=== PATIENT | female | born 1985 | race Caucasian/White ===

== ENCOUNTER 2023-12-03 02:18 | Emergency (ER) | payer SELFPAY ==
[2023-12-03 02:23] VITALS: BP 135/78; PULSE 110; RESP 20; TEMP 36.7; O2SAT 99; BMI 45.2
--- NOTE | 2023-12-03 02:25 | ED_ITS ---
HPI - Anxiety General Time Seen by Provider: 02:25 Date Seen: 12/03/23 Chief Complaint: Anxiety Stated Complaint: anxiety/shaky Time Seen by Provider: 12/03/23 02:25 Source: patient, RN notes reviewed and old records reviewed Mode of arrival: ambulatory Limitations: no limitations History of Present Illness HPI narrative: 38-year-old female who comes in today with concern for anxiety. Patient says she woke up shaky, short of breath, tachycardic. Denies chest pain, says she is feeling better now but still shake in low short of breath. No recent illness, no nausea vomiting, no leg swelling. Related Data Home Medications ?Medication ?Instructions ?Recorded ?Confirmed buspirone .ROUTE 12/03/23 fluoxetine .ROUTE 12/03/23 Previous Rx's ?Medication ?Instructions ?Recorded hydroxyzine HCl 25 mg tablet 25 mg PO QID PRN #20 tabs 12/03/23 Allergies Allergy/AdvReac Type Severity Reaction Status Date / Time No Known Drug Allergies Allergy Verified 12/03/23 02:25 [facility] Medical History (Updated 12/03/23 @ 02:41 by Karlos Grande RN) Anxiety ?F41.9 - Anxiety disorder, unspecified (ICD-10) Social History Smoking Status: Current every day smoker What tobacco products do you use: cigarettes Do you use any of these nicotine containing products: Vaping Products Second hand tobacco smoke exposure: Yes How often do you have a drink containing alcohol: never AUDIT-C Alcohol total score: 0 Non-prescribed substance use: denies use Exam Narrative: Exam Narrative: General: Well-developed and well-nourished, no acute distress Head: Atraumatic and normocephalic Eyes: Pupils are equal reactive, extraocular motions intact, conjunctiva clear ENT: External nose and ears are normal, posterior pharynx without erythema or exudate Neck: No midline cervical tenderness, full spontaneous range of motion the neck, trachea midline, no adenopathy Heart: Tachycardic rate and rhythm no murmurs or thrills Lungs: Clear to auscultation bilaterally without wheezes or crackles Abdomen: Soft, nontender, nondistended with active bowel sounds Musculoskeletal: No tenderness, deformity, or edema Neurologic: Awake, alert, and oriented x3, no gross focal neurologic deficits, cranial nerves intact as tested Psych: Mood and affect are appropriate Skin: No rashes Const: Vital Signs, click to edit/add: Vital Signs - 24 hr 12/03/23 02:23 12/03/23 03:15 Temperature 98.1 F 98.1 F Pulse Rate [Right Pulse Oximeter] 110 H 95 Respiratory Rate 20 20 Blood Pressure [Ri ght Upper Arm] 135/78 122/70 Pulse Oximetry 99 99 Oxygen Delivery Me thod Room Air Room Air Course Course ED Course: Patient seen examined, comes in with concern for anxiety. Recent diagnosis anxiety depression is on Prozac and buspirone. Woke up at 2:00 a.m. feeling panicked, with shakiness and shortness of breath. No chest pain, no cough, no recent illness. On exam here, oxygen saturation 99%, tachycardic, says she feels little bit better. Hydroxyzine ordered and will watch in the emergency department. Reevaluation(s) Time of Reevaluation #1: 03:12 Reevaluation #1: the patient feeling better come stable for discharge Vital Signs Vital signs: Initial Vital Signs Temperature 98.1 F 12/03/23 02:23 Temperature Source Temporal Artery Scan 12/03/23 02:23 Pulse Rate 110 H 12/03/23 02:23 Respiratory Rate 20 12/03/23 02:23 Respiratory Effort Normal, Spontaneous, Non-Labored 12/03/23 02:23 Respiratory Depth Normal 12/03/23 02:23 Respiratory Pattern Normal 12/03/23 02:23 Blood Pressure 135/78 12/03/23 02:23 Blood Pressure Mean 97 12/03/23 02:23 Blood Pressure Position Sitting 12/03/23 02:23 Pulse Oximetry 99 12/03/23 02:23 Oxygen Delivery Method Room Air 12/03/23 02:23 Vital Signs Temperature 98.1 F 12/03/23 02:23 Pulse Rate 110 H 12/03/23 02:23 Respiratory Rate 20 12/03/23 02:23 Blood Pressure 135/78 12/03/23 02:23 Pulse Oximetry 99 12/03/23 02:23 Oxygen Delivery Method Room Air 12/03/23 02:23 Temperature 98.1 F 12/03/23 03:15 Pulse Rate 95 12/03/23 03:15 Respiratory Rate 20 12/03/23 03:15 Blood Pressure 122/70 12/03/23 03:15 Pulse Oximetry 99 12/03/23 03:15 Oxygen Delivery Method Room Air 12/03/23 03:15 Medications Administered Medications: Generic Name Dose Route Start Last Admin Trade Name Freq PRN Reason Stop Dose Admin Hydroxyzine Pamoate 25 mg 12/03/23 02:32 12/03/23 02:37 Hydroxyzine Pamoate 25 Mg Capsule PO 12/03/23 02:33 25 mg ONCE ONE Administration Discharge Plan Discharge Clinical Impression: Acute anxiety Patient Disposition: Home, Self-Care Condition: Stable Instructions: Anxiety (ED) Additional Instructions: Continue your current medication Contact your primary care provider in the morning to discuss medications Activity Level: No Restrictions Discharge Diet: Regular Prescriptions: New hydroxyzine HCl 25 mg tablet 25 mg PO QID PRNQty: 20 0RF No Action fluoxetine [Prozac] .ROUTE buspirone .ROUTE Stand Alone Forms: [email or web address] Info Instructions
[2023-12-03] MEDS: hydrOXYzine pamoate 25 MG CAPSULE PO (02:37)
[2023-12-03 03:15] VITALS: BP 122/70; PULSE 95; RESP 20; TEMP 36.7; O2SAT 99
[2023-12-03 03:16] VITALS: BP 122/70; PULSE 95; RESP 20; TEMP 36.7
== END 2023-12-03 03:16 | disposition home or self-care (01) ==
PROVIDERS: Emergency Provider Family Medicine
DX: F41.9 Anxiety disorder, unspecified (principal)
CPT/HCPCS: 99283; A9270

== ENCOUNTER 2023-12-13 18:27 | Emergency (ER) | payer SELFPAY ==
[2023-12-13 18:34] VITALS: BP 173/106; PULSE 89; RESP 26; TEMP 36.1; O2SAT 100; BMI 15.6
--- NOTE | 2023-12-13 18:38 | ED.ANXIETY ---
HPI - Anxiety General Time Seen by Provider: 18:38 Date Seen: 12/13/23 Chief Complaint: Anxiety Stated Complaint: panic attacks Time Seen by Provider: 12/13/23 18:31 Source: patient, RN notes reviewed and old records reviewed Mode of arrival: ambulatory Limitations: no limitations History of Present Illness HPI narrative: This 38yo female returns tonight with increasing anxiety, specifically panic attacks. Patient notes she initially did start having panic attacks driving to work, works in [employer]. These have started to increase, she has had 3 today. She was in our ER on December 02, did get hydroxyzine and has been using it. Today the hydroxyzine did not really seem to help. She is waking up from sleep, feels like her heart racing, feels impending doom, feels like she is going to . Keep the hydroxyzine was initially working. She was started on Prozac 10 mg on November 22 by her primary care provider in [place]. She did start with a therapist but has only just recently seen her, is not seeing her weekly and realizes that she needs weekly appointments. She did contact the crisis Center today, did talk to them. She has not had COVID recently, has not been ill. She was also given BuSpar but she states it made her feel too tired. She endorses stressors with her living situation which has improved. Her significant other relapsed with methamphetamine, she had to move out. Her children are with their father. She denies any suicidal ideation, no hallucinations. She was hospitalized remotely for a suicide attempt but again denies any suicidal ideation. She does have a history of anxiety and depression. She notes she has been having panic attacks. She had used Prozac in the past which is why her doctor in [place] opted to initiate that again. She denies any alcohol use, no illicit drug use. MD complaint: anxiety, heart racing and shortness of breath Related Data Home Medications ?Medication ?Instructions ?Recorded ?Confirmed buspirone .ROUTE 12/03/23 fluoxetine .ROUTE 12/03/23 Previous Rx's ?Medication ?Instructions ?Recorded hydroxyzine HCl 25 mg tablet 25 mg PO QID PRN #20 tabs 12/03/23 hydroxyzine HCl 25 mg tablet 25 - 50 mg (1 - 2 x 25 mg) PO QID 10/27/24 PRN #30 tabs Allergies Allergy/AdvReac Type Severity Reaction Status Date / Time No Known Drug Allergies Allergy Verified 12/03/23 02:25 Review of Systems Status of ROS: Reports: 6 or more systems reviewed and unremarkable except as noted in History and below [facility] Medical History (Updated 12/13/23 @ 19:11 by Leny Castellanos MD) Anxiety ?F41.9 - Anxiety disorder, unspecified (ICD-10) Social History Smoking Status: Current every day smoker What tobacco products do you use: cigarettes Do you use any of these nicotine containing products: Vaping Products Second hand tobacco smoke exposure: Yes How often do you have a drink containing alcohol: never AUDIT-C Alcohol total score: 0 Non-prescribed substance use: denies use Exam Const: Vital Signs, click to edit/add: Vital Signs - 24 hr 12/13/23 18:34 Temperature 96.9 F L Pulse Rate [Pulse Oximeter] 89 Respiratory Rate 26 H Blood Pressure [Ri ght Upper Arm] 173/106 H Pulse Oximetry 100 This 38-year-old female is alert, interactive, no apparent distress. She appears mildly tired but is used the hydroxyzine multiple times today, 3. She has good eye contact, speech is normal, not slurred, no rapid or for speech. She does not appear anxious at this time and denies current acute anxiety. Extraocular muscles intact, no nystagmus. Symmetrical facial function. Neck is supple, no thyromegaly masses or nodules. Lungs are clear, good air entry, wheezing or crackles. CV regular rate and rhythm, no murmur. Patient is ambulatory into the ED of her own accord. Skin warm and dry, no rash. Documenting provider has reviewed patient's vital signs: yes Course Course ED Course: This patient is clearly endorsing panic attacks with probable underlying anxiety disorder. She is doing multiple things in her power to try to improve this. Agree with her that she needs increase the frequency of her therapy appointments, may need to pursue biofeedback in other modalities to help with anxiety and panic attacks. We discussed that her Prozac dose is very low, she has a follow-up appointment with her primary provider on December 16. Will have her increase her Prozac to 20 mg daily. I am going to give her 1 tablet of 1 mg Ativan. Discussed with her that I really try to avoid benzodiazepines in anxiety. They do help but they are addictive and they really do not change the underlying chemistry of the disorder in the brain. Will get her another prescription of hydroxyzine, this can be increased to 1-2 tablets every 6 hours. She only has 2 pills left. She and I both agree that she does not need acute hospitalization at this time, she is not endorsing any psychosis or suicidality. Reviewed with patient that we have no other acute mental health or psychiatric services besides being seen by the ED physician at this time. There is no social services aide available. Does sound as if she access the crisis line today, she obviously has that number. Vital Signs Vital signs: Initial Vital Signs Respiratory Effort Normal 12/13/23 18:29 Respiratory Depth Normal 12/13/23 18:29 Respiratory Pattern Normal 12/13/23 18:29 Vital Signs Temperature 96.9 F L 12/13/23 18:34 Pulse Rate 89 12/13/23 18:34 Respiratory Rate 26 H 12/13/23 18:34 Blood Pressure 173/106 H 12/13/23 18:34 Pulse Oximetry 100 12/13/23 18:34 Temperature 96.9 F L 12/13/23 18:34 Pulse Rate 89 12/13/23 18:34 Respiratory Rate 26 H 12/13/23 18:34 Blood Pressure 173/106 H 12/13/23 18:34 Pulse Oximetry 100 12/13/23 18:34 Medications Administered Medications: Discontinued Medications Generic Name Dose Route Start Last Admin Trade Name Favio PRN Reason Stop Dose Admin Lorazepam 1 mg 12/13/23 18:57 12/13/23 19:08 Lorazepam 1 Mg Tablet PO 12/13/23 18:58 1 mg ONCE ONE Administration Discharge Plan Discharge Clinical Impression: Acute anxiety, Panic disorder Patient Disposition: Home, Self-Care Condition: Stable Instructions: Panic Disorder (ED), Anxiety (ED), Panic Attack (ED) Additional Instructions: Increase your Prozac to 20 mg daily. Keep your follow-up appointment with your primary care provider this week. Will provide note to be out of work tonight and tomorrow night. Can take the hydroxyzine for subsequent panic attacks as prescribed. Need to call the therapist and see if you can increase your appointments to weekly, see if you can get an emergent appointment this week. Do need to work on behavioral therapy for self relaxation techniques with anxiety. Prescriptions: New hydroxyzine HCl 25 mg tablet 25 - 50 mg PO QID PRNQty: 30 0RF No Action fluoxetine [Prozac] .ROUTE buspirone .ROUTE hydroxyzine HCl 25 mg tablet 25 mg PO QID PRNQty: 20 0RF Follow Up/Referrals: Provider,Not a Local [Primary Care Provider] - Stand Alone Forms: [employer] Info Instructions
[2023-12-13] MEDS: LORazepam 1 MG TABLET PO (19:08)
== END 2023-12-13 19:19 | disposition home or self-care (01) ==
PROVIDERS: Emergency Provider Family Medicine
DX: F41.9 Anxiety disorder, unspecified (principal); F41.0 Panic disorder [episodic paroxysmal anxiety]
CPT/HCPCS: 99283; A9270

== ENCOUNTER 2024-06-03 01:55 | Outpatient (CLI) | payer SELFPAY | END 2024-06-03 01:56 | disposition home or self-care (01) | LOC: AMB 09:33 | PROVIDERS: Visit Provider Internal Medicine | DX: R41.82 Altered mental status, unspecified (principal); F10.129 Alcohol abuse with intoxication, unspecified | CPT/HCPCS: A0425; A0427 ==

== ENCOUNTER 2024-06-03 02:18 | Emergency (ER) | payer SELFPAY ==
--- NOTE | 2024-06-03 02:23 | ED.GENADULT ---
HPI - General Adult General Chief complaint: Altered Mental Status Stated complaint: Altered ETOH Time Seen by Provider: 06/03/24 02:22 History of Present Illness HPI narrative: Patient is intoxicated 38-year-old woman who presents from froggy bottoms after becoming increasingly belligerent. She apparently hit her head earlier tonight and may have been lying on the floor for up to 30 minutes. Patient has had no seizure activity. She is only able to mumble incoherently. She is covered in vomit. She is brought in by EMS with police escort and 4 point restraints. Patient unable to give any further history does appear that she is on buspirone hydroxyzine and Prozac. Related Data Home Medications ?Medication ?Instructions ?Recorded ?Confirmed buspirone .ROUTE 12/03/23 fluoxetine .ROUTE 12/03/23 Previous Rx's ?Medication ?Instructions ?Recorded hydroxyzine HCl 25 mg tablet 25 mg PO QID PRN #20 tabs 12/03/23 hydroxyzine HCl 25 mg tablet 25 - 50 mg (1 - 2 x 25 mg) PO QID 12/13/23 PRN #30 tabs Allergies Allergy/AdvReac Type Severity Reaction Status Date / Time No Known Drug Allergies Allergy Verified 06/03/24 02:40 Review of Systems Status of ROS: Reports: unobtainable due to mental status [facility] Medical History Anxiety ?F41.9 - Anxiety disorder, unspecified (ICD-10) Social History Smoking Status: Current every day smoker What tobacco products do you use: cigarettes Do you use any of these nicotine containing products: Vaping Products Second hand tobacco smoke exposure: Yes How often do you have a drink containing alcohol: never AUDIT-C Alcohol total score: 0 Non-prescribed substance use: denies use service: No Exam Narrative: Exam Narrative: EXAM GENERAL: Patient appears grossly intoxicated mumbling incoherently. EYES: No scleral icterus. THYROID: no thyroid nodules or thyromegaly. LYMPH: No supraclavicular or cervical lymphadenopathy. SKIN: Visible skin seen during exam normal or with benign process only. EXT: No dependent lower extremity pedal edema. HEART: Regular rate and rhythm with no murmurs, rubs, or gallops. LUNGS: Clear to auscultation bilaterally with no crackles or wheezes. ABD: Soft, non tender, non distended. PSYCH: Patient intoxicated. Const: Vital Signs, click to edit/add: Vital Signs - 24 hr 06/03/24 02:26 06/03/24 02:49 06/03/24 02:49 Temperature 97.8 F Pulse Rate Pulse Rate [Right Pulse Oximeter] 91 Respiratory Rate 18 18 Blood Pressure [Ri ght Upper Arm] 122/75 Pulse Oximetry 95 95 Oxygen Delivery Me thod Room Air 06/03/24 02:49 06/03/24 02:52 Temperature Pulse Rate 119 H Pulse Rate [Right Pulse Oximeter] 102 H Respiratory Rate 16 Blood Pressure [Ri ght Upper Arm] 128/85 Pulse Oximetry 96 94 Oxygen Delivery Me thod Room Air Course Course ED Course: Patient seen and examined. [address] of [address] CT head and neck ordered. Standard laboratory studies collected. Vital Signs Vital signs: Initial Vital Signs Temperature 97.8 F 06/03/24 02:26 Temperature Source Temporal Artery Scan 06/03/24 02:26 Pulse Rate 91 06/03/24 02:26 Pulse Rhythm Regular 06/03/24 02:26 Pulse Strength 3+ Normal 06/03/24 02:26 Respiratory Rate 18 06/03/24 02:26 Blood Pressure 122/75 06/03/24 02:26 Blood Pressure Mean 90 06/03/24 02:26 Blood Pressure Position Supine 06/03/24 02:26 Pulse Oximetry 95 06/03/24 02:26 Oxygen Delivery Method Room Air 06/03/24 02:26 Vital Signs Temperature 97.8 F 06/03/24 02:26 Pulse Rate 91 06/03/24 02:26 Respiratory Rate 18 06/03/24 02:26 Blood Pressure 122/75 06/03/24 02:26 Pulse Oximetry 95 06/03/24 02:26 Oxygen Delivery Method Room Air 06/03/24 02:26 Temperature 97.8 F 06/03/24 02:26 Pulse Rate 119 H 06/03/24 02:52 Respiratory Rate 16 06/03/24 02:49 Blood Pressure 128/85 06/03/24 02:49 Pulse Oximetry 94 06/03/24 02:52 Oxygen Delivery Method Room Air 06/03/24 02:49 Medications Administered Medications: Discontinued Medications Generic Name Dose Route Start Last Admin Trade Name Favio PRN Reason Stop Dose Admin Olanzapine 10 mg 06/03/24 02:22 06/03/24 02:30 Olanzapine 5 Mg/Ml Inj IVP 06/03/24 02:23 10 mg ONCE ONE Administration Medical Decision Making MDM Narrative Medical decision making narrative: Patient is a 38-year-old woman who presents intoxicated and belligerent. Fallen and was mumbling nonsense. We did do CT of her head and neck which was negative. She is intoxicated but her blood work otherwise looks fine. She was observed overnight and this morning is able to care for herself as discharge the care of her friend. She is warned of the dangers of heavy alcohol use. Lab Data Labs: Lab Results 06/03/24 Range/Units 02:38 WBC 13.21 H (4.50-11.00) K/uL RBC 4.50 (4.00-5.20) m/uL Hgb 12.0 (12.0-16.0) gm/dL Hct 38.0 (33.0-51.0) % MCV 84 (80-100) fL MCH 27 (26-34) pg MCHC 32 (32-36) gm/dL RDW Coeff of Paz 13.5 (11.5-15.5) % Plt Count 354 (140-440) K/uL Neut % (Auto) 52.2 (42.0-72.0) % Lymph % (Auto) 40.3 (20-44) % [place] % (Auto) 5.3 (0.0-11.0) % Eos % (Auto) 1.4 (0.0-7.0) % Baso % (Auto) 0.3 (0.0-3.0) % Neut # (Auto) 6.90 (1.7-7.0) K/uL Lymph # (Auto) 5.30 H (0.90-2.90) K/uL [place] # (Auto) 0.70 (0.00-0.90) K/UL Eos # (Auto) 0.20 (0.00-0.50) K/uL Baso # (Auto) 0.00 (0.00-0.30) K/uL Abs Immat Gran (auto) 0.10 (0.00-0.30) K/uL Imm/Tot Granulo (auto) 0.5 % Sodium 142 (135-149) mmol/L Potassium 3.7 (3.6-5.1) mmol/L Chloride 110 (96-114) mmol/L Carbon Dioxide 17 L (20-32) mmol/L Anion Gap 15 (7-15) mEq/L BUN 12 (5-24) mg/dL Creatinine 0.9 (0.5-1.5) mg/dL Estimated Creat Clear 84.03 Estimated GFR 85 ml/min Glucose 109 (60-115) mg/dL Calcium 8.8 (8.4-10.6) mg/dL Total Bilirubin 0.7 (0.1-1.5) mg/dL AST 71 H (12-35) U/L ALT 103 H (4-35) U/L Alkaline Phosphatase 94 (40-150) U/L Total Protein 7.3 (6.0-8.3) g/dL Albumin 4.2 (3.3-5.0) g/dL HCG, Qual Negative (Negative) Salicylates < 1.0 L (1.0-10) mg/dL Acetaminophen < 10.0 (10.0-30.0) ug/mL Ethyl Alcohol 0.30 H (0.01-0.03) % Discharge Plan Discharge Clinical Impression: Intoxication Patient Disposition: Home, Self-Care Condition: Stable Instructions: Alcohol Intoxication (ED) Activity Level: No Restrictions Discharge Diet: Regular Prescriptions: No Action fluoxetine [Prozac] .ROUTE buspirone .ROUTE hydroxyzine HCl 25 mg tablet 25 mg PO QID PRNQty: 20 0RF hydroxyzine HCl 25 mg tablet 25 - 50 mg PO QID PRNQty: 30 0RF Follow Up/Referrals: Provider,Not a Local [Primary Care Provider] - Stand Alone Forms: [employer] Info Instructions
--- NOTE | 2024-06-03 02:25 | CRLHL7_ITS ---
For Patients: As a result of the Century Cures Act, medical imaging exams and procedure reports are released immediately into your electronic medical record. You may view this report before your referring provider. If you have questions, please contact your health care provider. Indication: Fall while intoxicated Technique: Noncontrast CT through the cervical spine with multiplanar reformats Comparison: None Findings: Mild motion degradation. Alignment: Mild leftward lateral listing, may be positional. Nonspecific straightening of the normal lordotic curvature. Bones: No acute fracture. No lytic or blastic lesion. Cervical levels: No acute abnormality appreciated. Soft tissues: No acute abnormality appreciated. Impression: Allowing for mild motion degradation, no acute abnormality is appreciated. Please note that all CT scans at this facility use dose modulation, iterative reconstruction, and/or weight-based dosing when appropriate to reduce radiation dose to as low as reasonably achievable. Dictated by Elia Jurado MD @ 06/03/2024 3:42:09 AM (Electronically Signed)
--- NOTE | 2024-06-03 02:25 | CRLHL7_ITS ---
For Patients: As a result of the Century Cures Act, medical imaging exams and procedure reports are released immediately into your electronic medical record. You may view this report before your referring provider. If you have questions, please contact your health care provider. Indication: Fall Technique: Noncontrast CT through the head with multiplanar reformats Comparison: None Findings: Examination is degraded by patient positioning and mild motion. Brain: No acute hemorrhage. No acute infarct. No significant mass effect or midline shift. No gross evidence of a mass lesion or cerebral edema. Ventricles: No acute abnormality appreciated. Orbits, sinuses, mastoids: No acute abnormality appreciated. Calvarium and soft tissues: No acute abnormality appreciated. Impression: Allowing for mild degradation by patient positioning and motion, no acute abnormality is appreciated. Please note that all CT scans at this facility use dose modulation, iterative reconstruction, and/or weight-based dosing when appropriate to reduce radiation dose to as low as reasonably achievable. Dictated by Elia Jurado MD @ 06/03/2024 3:41:07 AM (Electronically Signed)
[2024-06-03 02:26] VITALS: BP 122/75; PULSE 91; RESP 18; TEMP 36.6; O2SAT 95; BMI 39.2
[2024-06-03] MEDS: OLANZapine 5 MG/ML inj 10 MG IVP (02:30)
[2024-06-03 02:44] LABS: Basophils Percent Auto 0.3 % (0.0-3.0); Eosinophils Percent Auto 1.4 % (0.0-7.0); Immature Granulocytes Pct Auto 0.5 %; Lymphocytes Percent Auto 40.3 % (20-44); Mean Corpuscular HGB Conc 32 gm/dL (32-36); Mean Corpuscular Hemoglobin 27 pg (26-34); Mean Corpuscular Volume 84 fL (80-100); Monocytes Percent Auto 5.3 % (0.0-11.0); Neutrophils Percent Auto 52.2 % (42.0-72.0); Platelet Count* 354 K/uL (140-440); RDW Coefficient of Variation % 13.5 % (11.5-15.5); White Blood Count* 13.21 K/uL (4.50-11.00)
[2024-06-03 02:45] LABS: Slide Review Reflex No
[2024-06-03 02:49] VITALS: BP 128/85; PULSE 102; RESP 16; RESP 18; O2SAT 95; O2SAT 96
[2024-06-03 02:52] VITALS: PULSE 119; O2SAT 94
[2024-06-03 02:55] LABS: Albumin* 4.2 g/dL (3.3-5.0)
[2024-06-03 02:56] LABS: Chloride* 110 mmol/L (96-114); Potassium* 3.7 mmol/L (3.6-5.1); Sodium* 142 mmol/L (135-149)
[2024-06-03 02:58] LABS: Alanine Aminotransferase* 103 U/L (4-35); Alkaline Phosphatase* 94 U/L (40-150); Anion Gap 15 mEq/L (7-15); Aspartate Amino Transferase* 71 U/L (12-35); Bilirubin Total* 0.7 mg/dL (0.1-1.5); Blood Urea Nitrogen* 12 mg/dL (5-24); Carbon Dioxide* 17 mmol/L (20-32); Creatinine* 0.9 mg/dL (0.5-1.5); Est. Creatinine Clearance* 84.03; Estimated Glomerular Filt Rate 85 ml/min
[2024-06-03 02:59] LABS: Calcium* 8.8 mg/dL (8.4-10.6); Glucose* 109 mg/dL (60-115); Total Protein* 7.3 g/dL (6.0-8.3)
[2024-06-03 03:00] LABS: Acetaminophen* < 10.0 ug/mL (10.0-30.0); Salicylate* < 1.0 mg/dL (1.0-10)
[2024-06-03 03:01] LABS: HCG Qualitative Serum* Negative (Negative)
--- NOTE | 2024-06-03 06:54 | ED.NURSE ---
Pt walking to the bathroom with a steady gait, talking coherently. Pt escorted to the bathroom by this nurse, but able to walk independently.
[2024-06-03 07:31] VITALS: BP 113/59; PULSE 96; RESP 20; O2SAT 93
== END 2024-06-03 08:01 | disposition home or self-care (01) ==
PROVIDERS: Emergency Provider Internal Medicine
DX: F10.129 Alcohol abuse with intoxication, unspecified (principal); R41.82 Altered mental status, unspecified
CPT/HCPCS: 36415; 70450; 72125; 80053; 80143; 80179; 80306; 82077; 84703; 85025; 94761; 96374; 99283; 99284; 99285; 99291